=== PATIENT | female | born 1965 | race Caucasian/White ===

== ENCOUNTER 2016-10-14 11:28 | Emergency (ER) | payer OTHER ==
[~2016-10-14] VITALS: Ht 160 cm; Wt 82.1 kg
--- NOTE | ~2016-10-14 | EKG ---
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 : 1965 Requested By: Jese Faustin Order Number: [id number] MD: Santiago Ellington Measurements Intervals [place] Rate: 64 P: 69 VT: 176 QRS: -9 QRSD: 107 T: 66 QT: 454 QTc: 469 Interpretive Statements Sinus rhythm Prominent P waves, nondiagnostic ST elev, probable normal early repol pattern No previous ECG available for comparison Electronically Signed On 10-14-2016 14:21:02 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
[~2016-10-14 11:28] MED LIST: ABILIFY 5 MG TAB5 MG PO; ABILIFY10 MG PO; ACETAMINOPHEN-120 ML PO; ALBUTEROL2.5 MG/31 INH; AMBIEN 5 MG TABL5 M1 PO; AMBIEN CR 6.26.25 MG PO; AMITRIPTYLINE H10 M1 PO; ANTIVERT25 MG PO; APAP/CODEINE ELI5 M1 OR; ASPIRIN325 PO; ASPIRIN81 M2 PO; AUGMENTIN 875875 MG PO; B-12250 MCG PO; B-12500 MCG PO; B12INJ PO; BENTYL10 MG PO; BIOTIN-D1 GM PO; BIOTIN10 MG PO; BUTALB-APAP-CA1 EACH PO; CALCIUM 600 +1 EAC1 PO; CALTRATE-600 W1 EACH PO; CITRATE OF MAG296 ML PO; CLARINEX5 MG; CLARINEX5 MG PO; CLARITIN10 MG; CLARITIN10 MG PO; COLACE 100 MG100 MG PO; COMBIGAN EYE DR10 ML; COMBIGAN EYE DR10 ML OP; COMBIGAN EYE DR10 ML OPHTHALMIC; CONSTULOSE10 GM/15 M; DEPAKOTE 250MG250 M1 PO; DEPAKOTE125 MG PO; DEPAKOTE250 MG PO; DEPAKOTE500 MG PO; ENDUR-ACIN500 MG PO; ENULOSE10 GM/15 M PO; FERRO-TIME325 MG PO; FERROUS SULFATE PO; FIORICET 50-301 EACH PO; FISH OIL 1,0001 EAC5 PO; FISH OIL 1,001000 M2 PO; FLECTOR1 EA TOP; FLEXERIL; FLONASE 0.05%50 MCG NASAL; FLONASE16 GM; FUROSEMIDE 40 M40 MG PO; HYDROCODONE-AC120 ML PO; HYDROCORTISONE30 G9; HYDROXYZINE HCL25 M1; HYDROXYZINE HCL50 MG PO; IBUPROFEN 200200 M1 PO; IBUPROFEN 600600 M1 PO; K-DUR10 MEQ PO; KEFLEX500 MG PO; KEPPRA 500 MG500 MG PO; KEPPRA XR500 MG; KEPPRA XR500 MG PO; KEPPRA250 MG PO; KLOR-CON 1010 MEQ PO; L-LYSINE500 M1 PO; LACTULOSE10 GM/154; LASIX 20 MG TAB20 MG PO; LASIX 40 MG TAB40 M1; LASIX 40 MG TAB40 M1 PO; LIDODERM 5%1 PATC1 TRANSDERM; LOMOTIL TABLET1 EACH PO; LYRICA 50 MG50 MG PO; LYRICA25 MG PO; MAXZIDE-25 MG1 EACH PO; MEDROLDOSEPACK PO; MELATONIN 5 MG1 EACH PO; MINIPRESS1 MG PO; MIRAPEX0.25 MG PO; MOBIC15 MG PO; MOMETASONE FURO17 GM NASAL; NAPROSYN250 MG PO; NAPROSYN500 MG PO; NEXIUM40 MG PO; NORCO 10-325 T1 EACH PO; NORCO 5-325 TA1 EACH PO; NYSTATIN1 EA10 TOP; OMEPRAZOLE 20 M20 M1 PO; ORADENT 0.1% DEN5 GM TOP; OXCARBAZEPINE150 MG PO; OXYCODONE HCL 55 MG; PATADAY2.5 ML OP; PATADAY2.5 ML OPHTHALMIC; PHENERGAN 25 MG25 M1 PO; POTASSIUM CHLO10 ME1 PO; PROAIR HFA8.5 GM INH; PROVENTIL HFA6.7 G1 INH; PROZAC 10 MG CA10 MG PO; PROZAC 20 MG20 M1 PO; PROZAC40 MG PO; ROVIN-CF OF TA1 EACH PO; SYMBICORT160 MCG/4. INH; TESSALON PERLE100 MG PO; TOPICORT 0.25%15 G1 TOP; TOPROL XL50 MG; TOPROL XL50 MG PO; TRAMADOL 50 MG50 MG PO; TRILEPTAL600 MG PO; TYLENOL W/CODEI1 TA2 PO; ULTRAM 50MG TAB50 MG PO; VIMPAT1 EACH; VIMPAT50 MG PO; VISTARIL 25 MG25 M1; VITAMIN B-12500 MCG PO; VITAMIN D-32000 UNIT PO; VITAMIN D3400 UNIT; VITAMIN E100 UNIT PO; VITAMIN E400 UNIT PO; VITAMINC500 PO; XIFAXAN550 M1 PO; ZANTAC 150MG T150 MG PO; ZOFRAN ODT4 MG DISSOLVE; ZOFRAN ODT4 MG PO; ZOFRAN4 MG PO; ZOVIRAX 5% OINT15 G1 TOP; ZOVIRAX 5% OINT15 GM; ZOVIRAX 5% OINT15 GM TP; ZPAK PO; ZYPREXA 5 MG TAB5 M1 PO; ZYRTEC10 M2 PO; [UNRECOGNIZED DRUG - OTHER]; [UNRECOGNIZED DRUG - OTHER]
[2016-10-14] MEDS ORDERED: ZOLOFT50 MG PO (12:35)
[2016-10-14 12:41] LABS: HEMATOCRIT 35.5 % (37.0-47.0); HEMOGLOBIN 11.7 gm/dL (12.0-15.0); MANUAL DIFF YES; MCH 27.4 pg (26.0-34.0); MCV 83.1 fL (80.0-100.0); PLATELET COUNT 188 thou/uL (150-400); RBC 4.27 mil/uL (4.20-5.00); RDW 18.5 % (10.5-14.5); WBC 10.5 thou/uL (4.0-11.0)
[2016-10-14 12:46] LABS: ANION GAP 5 mmol/L (7-16); BUN 10 mg/dL (7-18); CALCIUM 8.8 mg/dL (8.5-10.1); CHLORIDE 110 mmol/L (98-107); CO2 31 mmol/L (21-32); CREATININE 0.9 mg/dL (0.6-1.3); GLUCOSE 88 mg/dL (70-99); POTASSIUM 3.7 mmol/L (3.5-5.1); SODIUM 146 mmol/L (136-145)
[2016-10-14 12:50] LABS: ALKALINE PHOSPHATASE 102 U/L (46-116); MAGNESIUM 1.8 mg/dL (1.8-2.4); SGOT 28 U/L (15-37); SGPT 24 U/L (30-65); TOTAL BILIRUBIN 0.9 mg/dL (<0.1-1.0); TOTAL PROTEIN 6.1 g/dL (6.4-8.2); TROPONIN-I < 0.04 ng/mL (<0.04-0.07)
[2016-10-14 13:05] LABS: ABSOLUTE NEUTROPHILS 4.1 thou/uL (1.4-8.2); ANISOCYTOSIS 2+; ATYPICAL LYMPHS 2 %; PLATELET ESTIMATE NORMAL; TOTAL CELL COUNT 100
== END 2016-10-14 14:21 | disposition home or self-care (01) ==
LOC: ER 11:28
PROVIDERS: Emergency Medicine
DX: R06.02 Shortness of breath (principal); F10.99 Alcohol use, unspecified with unspecified alcohol-induced disorder; F43.10 Post-traumatic stress disorder, unspecified; F31.9 Bipolar disorder, unspecified; J44.9 Chronic obstructive pulmonary disease, unspecified; Z98.890 Other specified postprocedural states; Z87.891 Personal history of nicotine dependence; Z88.1 Allergy status to other antibiotic agents; Z88.5 Allergy status to narcotic agent; Z88.8 Allergy status to other drugs, medicaments and biological substances; Z90.710 Acquired absence of both cervix and uterus

== ENCOUNTER 2017-04-21 11:51 | Emergency (ER) | payer OTHER ==
[~2017-04-21] VITALS: Ht 160 cm; Wt 75.8 kg
--- NOTE | ~2017-04-21 | EKG ---
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 : 1965 Requested By: Edgar Busch Order Number: [id number] MD: Santiago Ellington Measurements Intervals [place] Rate: 64 P: 74 TN: 162 QRS: -21 QRSD: 96 T: 59 QT: 486 QTc: 502 Interpretive Statements Sinus rhythm Borderline left axis deviation Borderline prolonged QT interval Compared to ECG 10/14/2016 11:31:17 ST (T wave) deviation no longer present Electronically Signed On 04-23-2017 22:08:24 CDT by Santiago Ellington [email or web address] <ELECTRONICALLY SIGNED> By: Santiago Ellington MD 04/23/178 132 21 Santiago Ellington MD /DENNIS
[~2017-04-21 11:51] MED LIST changes: +ZOLOFT50 MG PO
[2017-04-21 14:05] LABS: HEMATOCRIT 39.7 % (37.0-47.0); HEMOGLOBIN 13.2 gm/dL (12.0-15.0); MCH 30.2 pg (26.0-34.0); MCHC 33.2 g/dL (28.0-37.0); MCV 90.9 fL (80.0-100.0); PLATELET COUNT 180 thou/uL (150-400); RBC 4.36 mil/uL (4.20-5.00); RDW 17.9 % (10.5-14.5); WBC 7.8 thou/uL (4.0-11.0)
[2017-04-21 14:06] LABS: MANUAL DIFF YES
[2017-04-21 14:06] LABS: URINE BILIRUBIN NEGATIVE (Negative); URINE BLOOD NEGATIVE (Negative); URINE COLOR YELLOW; URINE GLUCOSE-RANDOM* NEGATIVE (Negative); URINE KETONES NEGATIVE (Negative); URINE NITRITE NEGATIVE (Negative); URINE PROTEIN (DIPSTICK) NEGATIVE (Negative); URINE SPECIFIC GRAVITY <= 1.005 (1.003-1.035); URINE UROBILINOGEN 0.2 E.U./dl (0.2-1.0)
[2017-04-21 14:18] LABS: ANION GAP 7 mmol/L (7-16); BUN 7 mg/dL (7-18); CALCIUM 9.2 mg/dL (8.5-10.1); CHLORIDE 109 mmol/L (98-107); CO2 27 mmol/L (21-32); CREATININE 0.7 mg/dL (0.6-1.0); GLUCOSE 87 mg/dL (74-106); POTASSIUM 3.7 mmol/L (3.5-5.1); SODIUM 143 mmol/L (136-145)
[2017-04-21 14:26] LABS: TROPONIN-I < 0.04 ng/mL (<0.04-0.07)
[2017-04-21 14:49] LABS: ABSOLUTE NEUTROPHILS 2.3 thou/uL (1.4-8.2); ATYPICAL LYMPHS 2 %; PLATELET ESTIMATE NORMAL; TOTAL CELL COUNT 100
[2017-04-21] MEDS ORDERED: NORCO 5-325 TA1 EACH PO (16:53)
== END 2017-04-21 17:00 | disposition home or self-care (01) ==
LOC: ER 11:51
PROVIDERS: Nurse Practitioner
DX: M25.551 Pain in right hip (principal); M25.561 Pain in right knee; R21 Rash and other nonspecific skin eruption; R53.1 Weakness; F31.9 Bipolar disorder, unspecified; J44.9 Chronic obstructive pulmonary disease, unspecified; F43.10 Post-traumatic stress disorder, unspecified; F10.99 Alcohol use, unspecified with unspecified alcohol-induced disorder; Z95.5 Presence of coronary angioplasty implant and graft; Z90.710 Acquired absence of both cervix and uterus; Z86.718 Personal history of other venous thrombosis and embolism; Z98.890 Other specified postprocedural states; Z88.1 Allergy status to other antibiotic agents; Z88.5 Allergy status to narcotic agent; Z88.8 Allergy status to other drugs, medicaments and biological substances; Z87.891 Personal history of nicotine dependence; W18.09XA Striking against other object with subsequent fall, initial encounter; Y93.89 Activity, other specified; Y92.89 Other specified places as the place of occurrence of the external cause; Y99.8 Other external cause status

== ENCOUNTER 2019-05-08 20:58 | Emergency (ER) | payer OTHER ==
[~2019-05-08] VITALS: Ht 160 cm; Wt 64.4 kg
[2019-05-09] MEDS ORDERED: NAPROSYN500 MG PO (00:52)
[2019-05-09] MEDS ORDERED: ZOLOFT50 MG PO (01:14)
[2019-05-09 02:58] VITALS: BP 109/59
== END 2019-05-09 03:00 | disposition home or self-care (01) ==
LOC: ER 20:58
DX: M54.2 Cervicalgia (principal); F10.129 Alcohol abuse with intoxication, unspecified; F17.210 Nicotine dependence, cigarettes, uncomplicated; M79.7 Fibromyalgia; J44.9 Chronic obstructive pulmonary disease, unspecified; Z90.49 Acquired absence of other specified parts of digestive tract; Z88.3 Allergy status to other anti-infective agents; Z88.8 Allergy status to other drugs, medicaments and biological substances; Z88.1 Allergy status to other antibiotic agents; Z88.5 Allergy status to narcotic agent; Z79.899 Other long term (current) drug therapy; Z90.710 Acquired absence of both cervix and uterus; Z86.718 Personal history of other venous thrombosis and embolism; W18.39XA Other fall on same level, initial encounter; Y93.89 Activity, other specified; Y92.89 Other specified places as the place of occurrence of the external cause; Y99.9 Unspecified external cause status; Y90.9 Presence of alcohol in blood, level not specified